=== PATIENT | female | born 1995 | race Caucasian/White ===

== ENCOUNTER 2020-05-10 20:16 | Emergency (ER) | payer OTHER ==
[~2020-05-10] VITALS: Ht 165.1 cm; Wt 108.9 kg
[2020-05-10 20:36] VITALS: BP 163/104
--- NOTE | 2020-05-10 20:41 | NUR ---
triaged in tent and brought to ED bed 05
--- NOTE | 2020-05-10 20:45 | NUR ---
25 Y/O F, BROUGHT IN TO ER WITH C/O SUICIDAL IDEATION. PT REPORTS HAVING A PLAN OF HURTING HERSELF TONIGHT. PT CHANGED HER MIND AND TOLD HER PARENTS TO TAKE HER TO THE EMERGENCY ROOM TO GET THE HELP SHE NEEDS. PT REPORTS GETTING SEEN IN THE ER LAST WEEK FOR GASTRITIS AND CELLULITIS. ALL VITALS WITHIN NORMAL LIMITS. AFEBRILE. SAFETY MEASURES IN PLACE, SHARPS AND EQUIPMENT REMOVED FROM ROOM. NKA PAST MEDICAL HX: OVERDOSE, DEPRESSION, ADHD
--- NOTE | 2020-05-10 21:00 | NUR ---
EKG PERFORMED AT BEDSIDE. EKG READS SINUS RHYTHM @ 91
[2020-05-10] MEDS ORDERED: PROM25TA27 PO (21:11)
[2020-05-10] MEDS ORDERED: METH10TA3 PO (21:11)
[2020-05-10] MEDS ORDERED: ZOLP5TAB7 PO (21:11)
[2020-05-10] MEDS ORDERED: [UNRECOGNIZED DRUG - CODE] PO (21:11)
[2020-05-10] MEDS ORDERED: CEPH250C16 PO (21:11)
[2020-05-10] MEDS ORDERED: FAMO-90 PO (21:11)
[2020-05-10] MEDS ORDERED: ONDA-24 SL (21:11)
[2020-05-10] MEDS ORDERED: SERT100T PO (21:11)
--- NOTE | 2020-05-10 21:18 | NUR ---
Dr. Coleman examining patient.
[2020-05-10 21:37] LABS: BASOPHILS # (AUTO) 0.1 K/uL (0.00-0.22); BASOPHILS % (AUTO) 1.1 % (0.0-2.0); EOSINOPHILS # (AUTO) 0.1 K/uL (0-0.4); EOSINOPHILS % (AUTO) 1.7 % (0.0-4.0); HEMATOCRIT 44.2 % (36-48); HEMOGLOBIN 14.8 g/dL (12.0-16.0); LYMPHOCYTES # (AUTO) 2.4 K/uL (2.5-16.5); LYMPHOCYTES % (AUTO) 29.5 % (20.5-51.1); MEAN CORPUSCULAR HEMOGLOBIN 30 pg (27-31); MEAN CORPUSCULAR HGB CONC 34 g/dL (33-37); MEAN CORPUSCULAR VOLUME 89.2 fL (80-94); MONOCYTES # (AUTO) 0.6 K/uL (0.8-1.0); MONOCYTES % (AUTO) 6.7 % (1.7-9.3); NEUTROPHILS # (AUTO) 5.1 K/uL (1.8-7.7); PLATELET COUNT (AUTO) 385 K/uL (140-450); RED BLOOD CELL COUNT(AUTO) 4.95 MIL/uL (4.20-5.40); RED CELL DISTRIBUTION WIDTH 12.9 % (11.6-13.7); WHITE BLOOD COUNT (AUTO) 8.3 K/uL (4.8-10.8)
--- NOTE | 2020-05-10 21:48 | NUR ---
PT TAKEN TO XRAY
[2020-05-10 22:01] LABS: ALBUMIN 4.1 g/dL (3.4-5.0); ANION GAP 15.8 (8-16); ASPARTATE AMINOTRANSFERASE 19 U/L (15-37); CHLORIDE 106 mmol/L (98-107); CREATININE 0.7 mg/dL (0.6-1.3); GFR ARICAN-AMERICAN 131 mL/min (>90); GLUCOSE 99 mg/dL (74-106); POTASSIUM 3.8 mmol/L (3.5-5.1); SODIUM SERUM 142 mmol/L (136-145); TOTAL BILIRUBIN 0.4 mg/dL (0.0-1.0); UREA NITROGEN, BLOOD 5 mg/dL (7-18)
[2020-05-10 22:08] LABS: ACETAMINOPHEN < 0.5 ug/ml (10-30); SALICYLATE < 2.8 mg/dL (2.8-20.0)
--- NOTE | 2020-05-10 22:35 | NUR ---
PT AMBULATED TO AND FROM RESTROOM WITHOUT INCIDENT. SEARCHED BED FOR ANY HARMFUL OBJECTS, PT DOOR CLOSED ONLY SLIGHTLY. NO DISTRESS NOTED.
[2020-05-10 23:21] LABS: BARBITURATE, URINE NEGATIVE ng/ml (NEG <=200); BENZODIAZEPINE, URINE NEGATIVE ng/mL (NEG <=200); CANNABINOID, URINE POSITIVE ng/mL (NEG <=50); COCAINE, URINE NEGATIVE ng/mL (NEG <=300); OPIATE, URINE NEGATIVE ng/mL (NEG <=2000); PHENCYCLIDINE SCREEN,URINE NEGATIVE ng/mL (NEG <=25)
--- NOTE | 2020-05-10 23:39 | NUR ---
TELE PSYCH VIDEO MONITOR TAKEN AND INITIATED FOR PT IN BED 5 PER DOCTOR MCCORMICK.
[2020-05-11] MEDS ORDERED: ONDANSETRON 4 MG ODT PO ONE ×2 (00:10→07:50)
--- NOTE | 2020-05-11 00:30 | NUR ---
PT COMPLAINING OF NAUSEA, ER MD MADE AWARE, WILL CARRY OUT NEW ORDERS.
--- NOTE | 2020-05-11 00:45 | NUR ---
TELEPSYCH DOCTOR SPEAKING WITH PATIENT VIA REMOTE COMMUNICATION
--- NOTE | 2020-05-11 02:30 | NUR ---
DENISE DEY IN TO SIGN [id number] PAPERS.
--- NOTE | 2020-05-11 03:02 | NUR ---
[facility] ANTIGEN COVID SWAB AND PCR SWAB RECEIVED AND SENT WITH LAB. PT TOLERATED WELL. PT DENIES SUICIDAL IDEATION AT THIS TIME. UPDATED ON TREATMENT PLAN, VERBALIZED UNDERSTANDING.
--- NOTE | 2020-05-11 03:15 | NUR ---
PT'S TRANSFER PACKET FAXED OVER TO [facility], WAITING FOR CONFORMATION FAX.
--- NOTE | 2020-05-11 06:15 | NUR ---
[facility] received packet, will begin working on placement. Will contact ER with any placement updates.
--- NOTE | 2020-05-11 07:21 | NUR ---
INTRODUCED PATIENT TO [facility] .GAVE REPORT. PT IN STABLE CONDITION, TRANSFER OF CARE AT THIS TIME.
--- NOTE | 2020-05-11 07:25 | NUR ---
RECEIVED PT IN BED. AWAKE, ALERT, PLEASANT AND COOPERATIVE. DENIES SI AT THIS. DENIES PAIN OR DISCOMFORT. AMBULATES TO BR, WARM BLANKET GIVEN.
--- NOTE | 2020-05-11 07:45 | NUR ---
PT FOUND TEARFUL IN BED. PT COMPLAINING OF FEELING NAUSEOUS, STATES "EVERYTIME I LIE DOWN I GET NAUSEOUS AND I CAN'T SLEEP." DR. HUSTON MADE AWARE, ORDERS IN PLACE.
--- NOTE | 2020-05-11 07:56 | NUR ---
PT MEDICATED, PT SAT UP IN HIGH FOWLERS FOR COMFORT. PT STATES "I CAN'T LIE DOWN RIGHT NOW I FEEL SICK." BREAKFAST TRAY LEFT AT BEDSIDE. PT ADVISED TO CALL FOR ANY ASSISTANCE.
--- NOTE | 2020-05-11 08:30 | NUR ---
RESTING IN BED WITH EYES CLOSED. RESPIRATIONS REGULAR AND UNLABORED.
[2020-05-11 08:55] VITALS: BP 137/68
--- NOTE | 2020-05-11 08:55 | NUR ---
SPOKE WITH ZULEIMA AT [facility]. UPDATED INFORMATION GIVEN. [facility] IS ACCEPTING TRANSFER, DR KITCHEN IS ACCEPTONG PHYSICIAN.
--- NOTE | 2020-05-11 09:46 | NUR ---
Pt report given to ZULEIMA AT [facility]. Transfer of care at this time.
== END 2020-05-11 09:43 ==
LOC: MED 20:16
DX: R45.851 Suicidal ideations (principal); F12.90 Cannabis use, unspecified, uncomplicated; F90.9 Attention-deficit hyperactivity disorder, unspecified type; Z20.828 Contact with and (suspected) exposure to other viral communicable diseases; Z79.899 Other long term (current) drug therapy; Z90.89 Acquired absence of other organs
CPT/HCPCS: 36415; 74018; 80053; 80305; 81025; 85025; 87426; 93005; 99285; G0480; G0482; Q0162; U0003